=== PATIENT | female | born 1965 | race Caucasian/White ===

== ENCOUNTER → 2017-05-04 | Outpatient (CLI) | payer BC ==
[~2017-05-04] VITALS: Ht 156.8 cm; Wt 146.9 kg
[~2017-05-04] MED LIST: ALEVE220 M2 PO; BUTRANS1 EAC2 TD; DOXYCYCLINE HY100 MG PO; NAPROXEN500 MG PO; OMEPRAZOLE40 M1 PO; PERCOCET 5/31 TABLET PO; PREDNISONE20 MG PO; REQUIP1 MG PO; SYNTHROID88 MCG PO
== END | disposition home or self-care (01) ==
LOC: AMB 14:22
DX: K22.70 Barrett's esophagus without dysplasia (principal); K62.1 Rectal polyp; K44.9 Diaphragmatic hernia without obstruction or gangrene; K29.70 Gastritis, unspecified, without bleeding; R19.7 Diarrhea, unspecified; K64.8 Other hemorrhoids; R19.4 Change in bowel habit
CPT/HCPCS: 88305; 88313; 88342 TC; 93005